=== PATIENT | male | born 1990 ===

== ENCOUNTER 2018-06-19 17:39 | Emergency (ER) | payer OTHER ==
[2018-06-19] MEDS ORDERED: Iohexol 300 100 ML IJ ONE (19:40)
[2018-06-19] MEDS ORDERED: Sodium Chloride 0.9% 0 ML IV ONE (19:40)
[2018-06-19 21:10] LABS: BASO % 0.2 % (0.0-2.0); EOS % 0.2 % (0.0-4.0); HEMOGLOBIN 15.4 g/dL (12.0-18.0); LYMPH # 2.7 K/uL (1.0-4.3); LYMPH % 24.9 % (20.0-40.0); MEAN CELL VOLUME 87.9 fl (80.0-94.0); MEAN CORPUSCULAR HEMOGLOBIN 29.8 pg (27.0-31.0); MEAN CORPUSCULAR HGB CONC 33.9 g/dL (33.0-37.0); MEAN PLATELET VOLUME 7.5 fl (7.2-11.7); MONO # 0.7 K/uL (0.0-0.8); MONO % 6.1 % (0.0-10.0); NEUT # 7.5 K/uL (1.8-7.0); NEUT % 68.6 % (50.0-75.0); NRBC % 0.1 % (0.0-0.0); RBC 5.17 Mil/uL (4.40-5.90); RED CELL DISTRIBUTION WIDTH 13.5 % (11.5-14.5); WHITE BLOOD COUNT 10.9 K/uL (4.8-10.8)
[2018-06-19 21:24] LABS: ALB/GLOB RATIO 1.3 (1.0-2.1); ALBUMIN 4.8 g/dL (3.5-5.0); ALT/SGPT 35 U/L (21-72); AST/SGOT 54 U/L (17-59); BLOOD UREA NITROGEN 8 mg/dl (9-20); CALCIUM 9.8 mg/dL (8.4-10.2); GFR NON-AFRICAN AMERICAN > 60
--- NOTE | 2018-06-19 21:38 | ED PDOC ---
HPI: General Adult Time Seen by Provider: 06/19/18 19:07 Chief Complaint (Nursing): ENT Problem Chief Complaint (Provider): left-sided throat/neck pain History Per: Patient History/Exam Limitations: no limitations Onset/Duration Of Symptoms: Days (10) Current Symptoms Are (Timing): Still Present Additional Complaint(s): 27 year old male presents ED complaining of left-sided throat/neck pain onset for 10 days. Patient states he began having throat pain and ear pain 10 days ago for which he started taking Amoxicillin x 10 days, 1000mg PO three times a day without any relief. States that the medication was given to him in January 2018 and expires in September 2019. He has only been taking medications and he has not seen a provider. He took Ibuprofen with some improvements in pain and symptoms but came to the ED for further evaluation. Patient became concerned when he Googled and believed the symptoms are due to HPV as he was recently exposed. Otherwise, patient denies fever, chills, night sweats, nasal congestion or body aches. Of note: Patient was seen in the ED on March 24 for HIV after unprotected sex with HIV positive male. Patient was HIV negative at that time and completed a 28 day of prophylactic antiretroviral therapy. Past Medical History Reviewed: Historical Data, Nursing Documentation, Vital Signs, Unable To Obtain Vital Signs: Last Vital Signs Temp 98.0 F 06/19/18 18:27 Pulse 80 06/19/18 18:27 Resp 16 06/19/18 18:27 BP 143/75 06/19/18 18:27 Pulse Ox 99 06/19/18 18:27 - Medical History PMH: No Chronic Diseases - Family History Family History: States: Unknown Family Hx - Immunization History Hx Tetanus Toxoid Vaccination: No Hx Influenza Vaccination: No Hx Pneumococcal Vaccination: No - Home Medications Home Medications: Ambulatory Orders Medication Instructions Recorded Ondansetron ODT [Zofran ODT] 4 mg PO Q6H PRN #6 odt 01/18/18 Dolutegravir Sodium [Tivicay] 1 tab PO BID 28 Days tab 04/12/18 Emtricitabine/Tenofovir (Tdf) 1 each PO DAILY 28 Days tablet 04/12/18 [Truvada 200 mg-300 mg Tablet] Clindamycin [Cleocin] 300 mg PO TID 10 Days cap 06/19/18 Ibuprofen [Motrin Tab] 600 mg PO Q6 PRN 7 Days tab 06/19/18 - Allergies Allergies/Adverse Reactions: Allergies Allergy/AdvReac Type Severity Reaction Status Date / Time No Known Allergies Allergy Verified 06/19/18 18:27 Review of Systems ROS Statement: Except As Marked, All Systems Reviewed And Found Negative Constitutional: Negative for: Fever, Chills, Sweats, Other (body ache ) ENT: Positive for: Ear Pain. Negative for: Nose Congestion Musculoskeletal: Positive for: Neck Pain (left-sided) Physical Exam - Reviewed Nursing Documentation Reviewed: Yes Vital Signs Reviewed: Yes - Physical Exam Appears: Positive for: No Acute Distress Head Exam: Positive for: ATRAUMATIC, NORMAL INSPECTION, NORMOCEPHALIC Eye Exam: Positive for: EOMI, PERRL ENT: Positive for: Pharynx Is (clear; no ulceration or growth or evidence of thresh noted ) Neck: Negative for: Normal (tenderness on palpation of left neck , no ecchymosis , erythema or swelling noted ) Cardiovascular/Chest: Positive for: Regular Rate, Rhythm. Negative for: Murmur Respiratory: Positive for: Normal Breath Sounds. Negative for: Respiratory Distress Lymphatic: Negative for: Adenopathy Neurological/Psych: Positive for: Awake, Alert, Normal Tone, Oriented (x3) - Laboratory Results Result Diagrams: 06/19/18 20:45 06/19/18 20:45 Lab Results: Total Bilirubin 0.7 mg/dl (0.2-1.3) 06/19/18 20:45 AST 54 U/L (17-59) 06/19/18 20:45 ALT 35 U/L (21-72) 06/19/18 20:45 Alkaline Phosphatase 79 U/L (38-126) 06/19/18 20:45 Total Protein 8.5 G/DL (6.3-8.2) H 06/19/18 20:45 Albumin 4.8 g/dL (3.5-5.0) 06/19/18 20:45 Globulin 3.7 gm/dL (2.2-3.9) 06/19/18 20:45 Albumin/Globulin Ratio 1.3 (1.0-2.1) 06/19/18 20:45 - ECG O2 Sat by Pulse Oximetry: 99 (RA) Pulse Ox Interpretation: Normal Medical Decision Making Medical Decision Making: Time: 19:30 Initial Plan: CBC CMP Rapid HIV Neck CT with IV contrast Ibuprofen 600mg Rapid strep [place] Pain has improved from 7/10 on pain scale to 2/10 on pain scale. + for Infectious Stan assay and Grp A Beta Strep Ag. Neck CT cancelled. Clindamycin 300mg PO x 1 ordered and patient advised to stop taking all other antibiotics. He should follow up with primary care doctor within the next week. Pt demonstrated understanding. Stable for D/c home. ------ Scribe Attestation: Documented by Arabella Sinclair, acting as a scribe for Jaymie Jiménez PA-C. Provider Scribe Attestation: All medical record entries made by the Scribe were at my direction and personally dictated by me. I have reviewed the chart and agree that the record accurately reflects my personal performance of the history, physical exam, medical decision making, and the department course for this patient. I have also personally directed, reviewed, and agree with the discharge instructions and disposition. Disposition - Clinical Impression Clinical Impression: Strep pharyngitis, Infectious mononucleosis - Patient ED Disposition Is Patient to be Admitted: No - Disposition Referrals: [facility] [Outside] Disposition: Routine/Home Disposition Time: 22:21 Condition: STABLE Additional Instructions: Follow up with primary care doctor within the next week for follow up. Take full course of Clindamycin as prescribed and stop taking all other antibiotics. Take Ibuprofen or Tylenol for pain. Prescriptions: Clindamycin [Cleocin] 300 mg PO TID 10 Days cap Ibuprofen [Motrin Tab] 600 mg PO Q6 PRN 7 Days tab PRN Reason: Pain, Moderate (4-7) Instructions: Strep Throat (DC), Mononucleosis (DC) Forms: [employer] (Yoruba) Print Language: MAORI
[2018-06-19 22:39] VITALS: BP 139/84; PULSE 86; RESP 18; TEMP 98.5; O2SAT 100
== END 2018-06-19 22:30 | disposition home or self-care (01) ==
LOC: H.ER 17:39
DX: J02.0 Streptococcal pharyngitis (principal); B27.90 Infectious mononucleosis, unspecified without complication